=== PATIENT | female | born 1980 | race Caucasian/White ===

== ENCOUNTER 2022-12-07 23:25 | Emergency (ER) | payer BC ==
[2022-12-07 23:32] VITALS: BP 131/77; PULSE 81; RESP 16; TEMP 98.4
[2022-12-08] MEDS ORDERED: HYDROCORTISONE SUPPOSITORY 25 MG SUPP RECTAL STA (00:58)
[2022-12-08] MEDS ORDERED: MUPIROCIN 2% OINT 22 GM TUBE TOPICAL SCH (01:00)
--- NOTE | 2022-12-08 01:10 | ED ---
Skin/Abscess/FB HPI - General Chief complaint: Skin/Abscess/Foreign Body Stated complaint: Hemorrhoids Time Seen by Provider: 12/07/22 23:44 Source: patient Mode of arrival: ambulatory Limitations: no limitations - History of Present Illness Initial comments: Patient is a 42-year-old female presenting with chief complaint of rash to the labia. Rash has been ongoing for the last week. It is painful and pruritic. Rash started after taking Monistat. Patient was tested for STI is by her PCP, they contacted her confirming that she was negative for all STI's including herpes. She is complaining of continuing pain. Patient is also complaining of hemorrhoid. Patient has had hemorrhoids for a long time, she has used Anusol suppositories in the past, recently ran out. [place] No vaginal discharge, pelvic pain, fever, chills, nausea, vomiting, abdominal pain. - Related Data Previous Rx's Medication Instructions Recorded Hydrocortisone Suppository 25 mg RECTAL DAILY #10 suppositor 12/08/22 [Anusol-Hc] Mupirocin Calcium 2% Cream 1 applic TOPICAL TID #15 gm 12/08/22 [Bactroban 2% Cream] Allergies Allergy/AdvReac Type Severity Reaction Status Date / Time latex Allergy Unknown Verified 12/07/22 23:33 Review of Systems ROS Statement: Those systems with pertinent positive or pertinent negative responses have been documented in the HPI. ROS Other: All systems not noted in ROS Statement are negative. Past Medical History Past Medical History: No Reported History History of Any Multi-Drug Resistant Organisms: None Reported Past Surgical History: Appendectomy, Tonsillectomy Additional Past Surgical History / Comment(s): ovarian cysts. breast surgery Past Psychological History: No Psychological Hx Reported Smoking Status: Current every day smoker Past Alcohol Use History: Occasional Past Drug Use History: Marijuana General Exam Limitations: no limitations General appearance: alert, in no apparent distress Head exam: Present: atraumatic, normocephalic, normal inspection Eye exam: Present: normal appearance Neck exam: Present: normal inspection External exam: Present: erythema, swelling, lesions (Multiple white bumps) Neurological exam: Present: alert, oriented X3, CN II-XII intact Psychiatric exam: Present: normal affect, normal mood Course Vital Signs 12/07/22 23:29 Temperature 98.4 F Pulse Rate 81 Respiratory 16 Rate Blood Pressure 131/77 O2 Sat by Pulse 97 Oximetry Medical Decision Making - Medical Decision Making Was pt. sent in by a medical professional or institution (CARINA Rubalcava, LEAD ACCOUNTANT, urgent care, hospital, or alf...) When possible be specific @ -[No] Did you speak to anyone other than the patient for history (EMS, parent, family, police, friend...)? What history was obtained from this source @ -[No] Did you review nursing and triage notes (agree or disagree)? Why? @ -[I reviewed and agree with nursing and triage notes] Were old charts reviewed (outside hosp., previous admission, EMS record, old EKG, old radiological studies, urgent care reports/EKG's, alf records)? Report findings @ -[No old charts were reviewed] Differential Diagnosis (chest pain, altered mental status, abdominal pain women, abdominal pain men, vaginal bleeding, weakness, fever, dyspnea, syncope, headache, dizziness, GI bleed, back pain, seizure, CVA, palpatations, mental health)? @ -Differential includes dermatitis, folliculitis, herpes, Rukhsana, ALLERGIC reaction EKG interpreted by me (3pts min.). @ -[As above] X-rays interpreted by me (1pt min.). @ -[None done] CT interpreted by me (1pt min.). @ -[None done] U/S interpreted by me (1pt. min.). @ -[None done] What testing was considered but not performed or refused? (CT, X-rays, U/S, labs)? Why? @ -Testing for herpes was considered, however patient was recently tested. What meds were considered but not given or refused? Why? @ -[None] Did you discuss the management of the patient with other professionals (professionals i.e. CARINA Rubalcava, LEAD ACCOUNTANT, lab, RT, psych nurse, child protective services social worker, criminal justice lawyer, teacher, medical scientific officer, field nurse case manager)? Give summary @ -[No] Was smoking cessation discussed for >3mins.? @ -[No] Was critical care preformed (if so, how long)? @ -[No] Were there social determinants of health that impacted care today? How? (Homelessness, low income, unemployed, alcoholism, drug addiction, transportation, low edu. Level, literacy, decrease access to med. care, [facility], rehab)? @ -[No] Was there de-escalation of care discussed even if they declined (Discuss DNR or withdrawal of care, Hospice)? DNR status @ -[No] What co-morbidities impacted this encounter? (DM, HTN, Smoking, COPD, CAD, Cancer, CVA, ARF, Chemo, Hep., AIDS, mental health diagnosis, sleep apnea, morbid obesity)? @ -[None] Was patient admitted / discharged? Hospital course, mention meds given and rou te, prescriptions, significant lab abnormalities, going to OR and other pertinent info. @ -Patient is a 32-year-old female presenting with chief complaint of painful rash to the labia as well as hemorrhoids. Rash is been ongoing for the last week started after using Monistat. On physical examination there is erythema to the bilateral labia as well as multiple white bumps. Likely folliculitis, patient is given Bactroban cream and instructed to follow-up with her PCP. Patient is also given refills of Anusol suppositories. No referral was provided this patient is from out of [place] visiting. Follow-up with PCP. Report back to ER with any new or worsening symptoms. Discussed return parameters and answered all questions. Patient conveyed verbal understanding and agreed to the plan. I discussed this case in detail with my attending Dr. Martell Undiagnosed new problem with uncertain prognosis? @ -[No] Drug Therapy requiring intensive monitoring for toxicity (Heparin, Nitro, Insulin, Cardizem)? @ -[No] Were any procedures done? @ -[No] Diagnosis/symptom? @ -Folliculitis Acute, or Chronic, or Acute on Chronic? @ -Acute Uncomplicated (without systemic symptoms) or Complicated (systemic symptoms)? @ -Uncomplicated Side effects of treatment? @ -[No] Exacerbation, Progression, or Severe Exacerbation? @ -[No] Poses a threat to life or bodily function? How? (Chest pain, [place], MA, pneumonia, PE, COPD, DKA, ARF, appy, cholecystitis, CVA, Diverticulitis, Homicidal, Suicidal, threat to staff... and all critical care pts) @ -[No] Diagnosis/symptom? @Hemorrhoids Acute, or Chronic, or Acute on Chronic? @Chronic Uncomplicated (without systemic symptoms) or Complicated (systemic symptoms)? @uncomplicated Side effects of treatment? @ [none] Exacerbation, Progression, or Severe Exacerbation] @ [no] Poses a threat to life or bodily function? @ [no] Disposition Clinical Impression: Folliculitis Disposition: HOME SELF-CARE Condition: Good Instructions (If sedation given, give patient instructions): Folliculitis (ED) Additional Instructions: Follow-up with PCP her certified massage therapist. Report back to ER with any new or worsening symptoms. Take medication as prescribed. Prescriptions: Hydrocortisone Suppository [Anusol-Hc] 25 mg RECTAL DAILY #10 suppositor Mupirocin Calcium 2% Cream [Bactroban 2% Cream] 1 applic TOPICAL TID #15 gm Is patient prescribed a controlled substance at d/c from ED?: No Referrals: Nonstaff,Physician [Primary Care Provider] - 1-2 days Time of Disposition: 01:09
== END 2022-12-08 01:44 | disposition home or self-care (01) ==
LOC: EC 23:25
DX: L73.9 Follicular disorder, unspecified (principal); F17.200 Nicotine dependence, unspecified, uncomplicated; F12.90 Cannabis use, unspecified, uncomplicated; Z90.89 Acquired absence of other organs; Z91.040 Latex allergy status
CPT/HCPCS: 99282